=== PATIENT | female | born 1955 | race Caucasian/White ===

== ENCOUNTER → 2017-01-03 | Outpatient (CLI) | payer BC | LOC: MC.RAD 09:39 | DX: Z12.31 Encounter for screening mammogram for malignant neoplasm of breast (principal) ==

== ENCOUNTER 2018-02-28 07:36 | Outpatient (CLI) | payer BC ==
[~2018-02-28] VITALS: Ht 162.6 cm; Wt 74.5 kg
[2018-02-28] MEDS ORDERED: PROCARDIA XL 3030 MG PO (08:19)
[2018-02-28] MEDS ORDERED: MEVACOR 20M20 MG/TAB PO (08:20)
[2018-02-28] MEDS ORDERED: HCTZ 25MG TAB25 MG PO (08:20)
[2018-02-28] MEDS ORDERED: CALCIUM CARBON650 M2 PO (08:21)
[2018-02-28] MEDS ORDERED: EPA FISH OIL1 SGL PO (08:21)
[2018-02-28 08:36] VITALS: BP 149/78; PULSE 70; TEMP 97.5
[2018-02-28 10:15] VITALS: BP 133/91; PULSE 77
[2018-02-28 10:30] VITALS: BP 148/70; PULSE 69
[2018-02-28 10:45] VITALS: BP 131/54; PULSE 70
[2018-02-28 11:35] LABS: PLEURAL FLUID RBC 4000 /mm3 (0-0); PLEURAL FLUID WBC 2666 /mm3
[2018-02-28 11:37] LABS: PLEURAL FLUID APPEARANCE HAZY; PLEURAL FLUID COLOR YELLOW
[2018-02-28 11:43] LABS: GLUCOSE,PLEURAL FLUID 77 mg/dL; TOTAL PROTEIN,PLEURAL FLUID 4.6 gm/dL
[2018-02-28 14:02] VITALS: BP 155/81; PULSE 73
== END 2018-02-28 11:10 | disposition home or self-care (01) ==
LOC: SDCO 07:36
PROVIDERS: Internal Medicine Pulmonary Disease
DX: J90 Pleural effusion, not elsewhere classified (principal); R91.1 Solitary pulmonary nodule

== ENCOUNTER → 2018-02-28 | Outpatient (CLI) | payer BC ==
[~2018-02-28] MED LIST: CALCIUM CARBON650 M2 PO; EPA FISH OIL1 SGL PO; HCTZ 25MG TAB25 MG PO; MEVACOR 20M20 MG/TAB PO; PROCARDIA XL 3030 MG PO
== END ==
LOC: MC.RAD 07:03
DX: Z12.31 Encounter for screening mammogram for malignant neoplasm of breast (principal); N63.20 Unspecified lump in the left breast, unspecified quadrant; N63.10 Unspecified lump in the right breast, unspecified quadrant

== ENCOUNTER → 2019-03-05 | Outpatient (CLI) | payer BC | LOC: MC.RAD 07:40 | DX: Z12.31 Encounter for screening mammogram for malignant neoplasm of breast (principal); N60.12 Diffuse cystic mastopathy of left breast; N60.11 Diffuse cystic mastopathy of right breast ==

== ENCOUNTER → 2020-03-20 | Outpatient (CLI) | payer MEDICARE | LOC: MC.RAD 09:14 | DX: Z12.31 Encounter for screening mammogram for malignant neoplasm of breast (principal) ==

== ENCOUNTER → 2021-03-18 | Outpatient (CLI) | payer MEDICARE, OTHER ==
--- NOTE | 2021-03-18 11:39 | NUR ---
PATIENT HAD CAFFINE LESS THAN 8 HOURS BEFORE TEST. PATIENT GIVEN PAMPHLET AND NUMBER TO RESCHEDULE.
== END ==
LOC: COL.PUL 11:22
DX: J43.8 Other emphysema (principal)

== ENCOUNTER → 2021-03-24 | Outpatient (CLI) | payer MEDICARE, OTHER | LOC: COL.PUL 11:30 | DX: J43.8 Other emphysema (principal) ==

== ENCOUNTER → 2021-06-04 | Outpatient (CLI) | payer MEDICARE, OTHER | LOC: MC.RAD 12:51 | DX: R92.0 Mammographic microcalcification found on diagnostic imaging of breast (principal) ==

== ENCOUNTER → 2021-10-21 | Outpatient (CLI) | payer MEDICARE, OTHER | LOC: COL.RAD 13:38 | DX: Z12.2 Encounter for screening for malignant neoplasm of respiratory organs (principal); R91.1 Solitary pulmonary nodule; I77.810 Thoracic aortic ectasia; I70.90 Unspecified atherosclerosis; J90 Pleural effusion, not elsewhere classified; Z87.891 Personal history of nicotine dependence; K76.0 Fatty (change of) liver, not elsewhere classified ==

== ENCOUNTER → 2022-05-27 | Outpatient (CLI) | payer MEDICARE, OTHER | LOC: MC.RAD 08:53 | DX: Z12.31 Encounter for screening mammogram for malignant neoplasm of breast (principal) ==

== ENCOUNTER → 2022-10-27 | Outpatient (CLI) | payer MEDICARE, OTHER | LOC: COL.RAD 14:10 | DX: Z12.2 Encounter for screening for malignant neoplasm of respiratory organs (principal); R91.8 Other nonspecific abnormal finding of lung field; Z87.891 Personal history of nicotine dependence ==

== ENCOUNTER → 2023-06-29 | Outpatient (CLI) | payer MEDICARE, OTHER | LOC: CANSCHCLI → MC.RAD 07:39 | DX: Z12.31 Encounter for screening mammogram for malignant neoplasm of breast (principal); N63.10 Unspecified lump in the right breast, unspecified quadrant ==